=== PATIENT | female | born 1960 | race Asian ===

== ENCOUNTER 2024-12-21 22:40 | Emergency (ER) | payer BC ==
[~2024-12-21] VITALS: Ht 157.5 cm; Wt 62.5 kg
[2024-12-21 22:46] VITALS: TEMP 36.7; O2SAT 98
[2024-12-21 22:51] VITALS: O2SAT 100
[2024-12-22 00:13] VITALS: BP 140/78; PULSE 83; RESP 16
[2024-12-22] MEDS: IBUPROFEN 600MG TABLET PO ONE (00:13)
== END 2024-12-22 01:13 | disposition home or self-care (01) ==
LOC: ER 22:51
DX: S20.211A Contusion of right front wall of thorax, initial encounter (principal); S09.90XA Unspecified injury of head, initial encounter; V43.52XA Car driver injured in collision with other type car in traffic accident, initial encounter; Y93.89 Activity, other specified; Y92.89 Other specified places as the place of occurrence of the external cause; Y99.8 Other external cause status
CPT/HCPCS: 71045; 99283

== ENCOUNTER 2024-12-25 17:25 | Emergency (ER) | payer BC ==
[~2024-12-25] VITALS: Ht 157.5 cm; Wt 63.0 kg
[2024-12-25 17:34] VITALS: O2SAT 99
[2024-12-25] MEDS ORDERED: MIDAZOLAM HCL 2 MG/2 ML VIAL IV ONE (18:00)
[2024-12-25 18:04] VITALS: BP 140/81; PULSE 79; RESP 18; TEMP 36.7; O2SAT 98
== END 2024-12-25 18:15 | disposition home or self-care (01) ==
LOC: ER 17:25
DX: Z00.8 Encounter for other general examination (principal)
CPT/HCPCS: 99281